=== PATIENT | female | born 1950 | race Caucasian/White ===

== ENCOUNTER 2024-11-30 23:37 | Observation (INO) | payer MEDICARE, SELFPAY ==
[2024-11-30 15:14] VITALS: BP 143/105
[2024-11-30 15:47] LABS: COVID-19 Antigen Positive (Negative)
[2024-11-30 15:49] LABS: % Basophils 0.5 % (0-2); % Eosinophils 0.5 % (0-6); % Immature Granulocytes 0.3 % (0-0.5); % Lymphocytes 7.9 % (20.5-51.1); % Monocytes 15.7 % (1.7-9.3); % Neutrophils 75.1 % (42.2-75.2); Absolute Lymphocytes 0.6 10^3/uL (1.2-3.4); Absolute Monocytes 1.3 10^3/uL (0.1-0.6); Hematocrit 39.1 % (37.0-47.0); Hemoglobin 12.8 g/dL (12.0-16.0); Mean Corp Hgb Conc. 32.7 g/dL (33.0-37.0); Mean Corpuscular Hgb 30.8 pg (27.0-31.0); Mean Platelet Volume 11.2 fL (7.4-10.4); Nucleated Red Blood Cells % 0 %; Platelet Count 195 10^3/uL (130-400); Red Blood Cell Count 4.16 10^6/uL (4.20-5.40); Red Cell Dist. Width 13.1 % (11.5-14.5)
[2024-11-30 16:05] LABS: ALT (SGPT) 22 U/L (0-35); AST (SGOT) 27 U/L (14-36); Albumin 4.1 g/dl (3.5-5.0); Alkaline Phosphatase 111 U/L (38-126); Blood Urea Nitrogen 22 mg/dl (7-17); Calcium 8.8 mg/dl (8.4-10.2); Carbon Dioxide 23 mmol/L (22-30); Chloride 98 mmol/L (98-107); Glucose 119 mg/dl (70-99); Potassium 4.1 mmol/L (3.5-5.1); Sodium 134 mmol/L (135-145); Total Bilirubin 0.7 mg/dl (0.2-1.3); Total Protein 6.2 g/dl (6.3-8.2); eGFR > 60.00
[2024-11-30 17:38] VITALS: BP 107/49
--- NOTE | 2024-11-30 19:38 | ED.GENMED ---
History of Present Illness
General
Chief Complaint: Headache
Source: patient and spouse
Exam Limitations: none
Time Seen by Provider: 11/30/24 19:11
Nursing documentation reviewed up to this point in time: agreed with
History of Present Illness
History of Present Illness:
74 yo female presents to the emergency complaining of cough, headache for the past 2 days. She took Tylenol which helped a little bit.
Past History
Past History
ED Past Medical History: Arrthythmia (Atrial fibrillation) and Other (Expressive aphasia)
ED Past Surgical History: Cardiac (Cardiac stents)
Social History
Tobacco: Non-smoker
Alcohol: None
Drug: None
Personal:
Review of Systems
Review of Systems
Allergies reviewed?: Yes
All Other Systems: Not applicable
Constitutional: Reports no symptoms
EENT: Reports no symptoms
Respiratory: Reports cough
Cardiac: Reports chest pain
ABD/GI: Reports no symptoms
: Reports no symptoms
Musculoskeletal: Reports no symptoms
Skin: Reports no symptoms
Neurological: Reports headache
Endocrine: Reports no symptoms
Hematologic/Lymphatic: Reports no symptoms
Psychiatric: Reports no symptoms
Phy Exam
Physical Exam
Physical Exam:
Physical Exam
General: no apparent distress, not acutely ill
Neck: supple. no meningeal signs. normal posterior pharynx
Heart: s1/s2 regular rate and rhythm, no murmur. equal radial
pulses.
HEENT: Pupils equal round reactive to light, EOMI
Lungs: no acute respiratory distress. clear bilaterally
Abdomen: normal bowel sounds. not tender. no CVAT
Neuro: alert and oriented. no focal neurological deficits cranial nerves II through XII intact, except expressive aphasia
Skin: no rash
Psychiatric: well kept. interactive and cooperative
Extremities: no edema. no calf tenderness. negative homans. good distal pulses
Course
Orders/Labs/Results
Orders:
Orders
11/30/24 15:[address] [CT Head W/o Iv Contrast] Urgent
Comment:
Reason For Exam: headache
11/30/24 15:37
COVID-19 Antigen Urgent
Source: Nasal Swab
Complete Blood Count/With Diff Urgent
Comprehensive Metabolic Panel Urgent
Influenza A+B Rapid Molecular Urgent
SAJAN Source: Nasal Swab
Specimen Description:
11/30/24 19:35
Electrocardiogram (*1) Urgent
Reason for Study: Chest Pain
EKG- Treatment ONCE
11/30/24 20:01
Troponin I Urgent
11/30/24 20:20
0.9% Sodium Chloride 1000 ml [Nss] 1,000 ml IV BOLUS
11/30/24 21:00
Acetaminophen [Tylenol] 650 mg PO NOW STA
11/30/24 21:01
CR Chest Portable - 1 View Urgent
Comment:
Reason For Exam: chest pain,, covid
Reason Study Needs to be Portable: Patient Unstable
11/30/24 22:21
Diltiazem HCl [Cardizem] 5 mg IV NOW STA
11/30/24 22:23
Diltiazem 125 mg/125 ml Nss [Cardizem] 125 mg in 125 ml IV NOW
Initial dose in mg/hr, then titrate:: 5
Titrate to keep:: Heart rate 80-100 bpm
Titrate by mg/hr:: 5 mg/hr
Frequency of titrations (minutes):: 15
Maximum dose in mg/hr:: 15
11/30/24 23:24
Admit/Transfer Patient As Directed
Co-Sign Provider:
Level of Care: Observation services
Assign to:: IMU- Intermediate Care
Physician / Group: Tana Glynn
Diagnosis: afib rvr, covid
11/30/24 23:26
Code Status As Directed
Resuscitation Status: Full Code
12/01/24 00:32
0.9% Sodium Chloride 1000 ml [Nss] 1,000 ml IV 100 mls/hr
Acetaminophen [Tylenol] 650 mg PO Q4HPRN PRN
Apixaban [Eliquis] 5 mg PO BID
12/01/24 00:32
CARDIOLOGY CONSULT Routine
Consulting Provider: Usama Dawson
Was physician already notified: No
Reason for consult: afib rvr
Consult Notification Routine
Specialty to Notify: Cardiology
Activity As Directed
Activity Level: Out of Bed-Early Mobility
Vital Signs As Directed
Frequency: Per unit guidelines
Weight As Directed
Frequency: Once
12/01/24 06:00
Echo 2D MMode Color/Doppler IN AM
Reason for Study: afib rvr
Complete Blood Count/No Diff IN AM
Comprehensive Metabolic Panel IN AM
Magnesium IN AM
TSH IN AM
12/01/24 08:00
Clopidogrel Bisulfate [Plavix] 75 mg PO DAILY
Ergocalciferol [Drisdol (Vitamin D2)] 50,000 units PO WE
Memantine HCl [Namenda] 5 mg PO DAILY
NIFEdipine EXTENDED RELEASE [Procardia Xl (Extended Release)] 30 mg PO DAILY
Valsartan [Diovan] 320 mg PO DAILY
biotin 10,000 mcg PO DAILY
12/01/24 Dinner
Cholesterol Lowering
Cholesterol Lowering: Sodium, 2 Gram
Abnormal Lab Results
11/30/24
15:37
RBC 4.16 L 10^6/uL
(4.20-5.40)
MCHC 32.7 L g/dL
(33.0-37.0)
MPV 11.2 H fL
(7.4-10.4)
Absolute Lymphs (auto) 0.6 L 10^3/uL
(1.2-3.4)
Absolute Monos (auto) 1.3 H 10^3/uL
(0.1-0.6)
Lymphocytes % 7.9 L %
(20.5-51.1)
Monocytes % 15.7 H %
(1.7-9.3)
Sodium 134 L mmol/L
(135-145)
BUN 22 H mg/dl
(7-17)
Glucose 119 H mg/dl
(70-99)
Total Protein 6.2 L g/dl
(6.3-8.2)
SARS-CoV-2 Antigen Positive A
(Negative)
11/30/24 15:37
11/30/24 15:37
Vital Signs
Initial and Last Documented VS:
Initial Vital Signs
Temp Pulse Resp BP Pulse Ox
98.9 F 67 18 143/105 97
11/30/24 15:14 11/30/24 15:14 11/30/24 15:14 11/30/24 15:14 11/30/24 15:14
Last Documented Vital Signs
Temp Pulse Resp BP Pulse Ox
98.1 F 66 17 118/53 96
12/01/24 00:45 12/01/24 00:30 12/01/24 00:15 12/01/24 00:00 12/01/24 01:28
MDM/Problems Addressed
Differential Diagnosis Includes:
Rapid atrial fibrillation, COVID
MDM/Problems Addressed:
74 yo female with covid, rapid afib. admit to hospitalist
Chronic conditions affecting care: Arrhythmia
Acute Exacerbation and/or Progression of Chronic Illness: Arrhythmia
*Radiology
Radiology exam reviewed: radiology read reviewed (CT head no acute findings)
*Pulse Oximetry
Patient hypoxic: no
*EKG
Interpreted by ED Provider?: Yes
EKG Intrepretation Date: 11/30/24
EKG Intrepretation Time: 19:50
Interpretation: abnormal
Comparison EKG: no comparison EKG present
Heart Rate: 112
Rate: tachycardiac
Rhythm: a-fib
[place]: left axis deviation
Interval: normal interval
QRS Pattern: normal QRS
Ischemia: no ischemia
*Combatant Diver Officer Interpretation
Rate: tachycardiac
Interpretation: abnormal
Heart Rate: 122
Rhythm: a-fib
*Critical Care Note
Total Time (30-74mins, 75-104mins- exclusive of procedures): 30
comment:
Critical care statement: A total of 30 minutes of critical care time was provided for this patient. This includes management of unstable vital signs, evaluation of the patient at bedside, reviewing the patient's pertinent medical records, discussion
with consultants, review of old EKGs and review of pertinent medical records. This time with separate from time utilized to perform the aforementioned documented procedures
Patient Management
Social determinants of health affecting care: Living situation
Discussion with other providers: Hospitalist
Escalation/DeEscalation of care consider admission/obs:
Admit indicated
ED Attending Note
-
Portions of this chart may have been created with voice recognition software.� Occasional wrong word or��sound alike� substitutions may have occurred due to the inherent limitations of voice recognition software.
Discharge Plan
Departure
Patient Disposition: Admit
Date of Disposition: 11/30/24
Time of Disposition: 22:24
Admit to: IMU
Presentation/result/management discussed w/ accepting MD/DO: Hospitalist
Patient with high blood pressure during this ER visit?: Yes
Covid-19: Confirmed COVID-19
Discharge Problem:
Atrial fibrillation with RVR, COVID-19, Aphasia
Interventions
Interventions:
*Risk Screen - Suicide Last Done: 12/01/24 00:45
*General Assessment Last Done: 11/30/24 15:14
*Neglect/Abuse Screening Last Done: 11/30/24 15:14
ED- Fall Risk Assessment Last Done: 12/01/24 00:39
*ED COVID-19 Vaccine History Last Done: 11/30/24 15:14
*Nursing Disposition Last Done: 12/01/24 00:39
ED- Neurological Assessment Last Done: 11/30/24 20:07
Discharge Date and Time
Discharge Date/Time: 12/01/24 00:39
[2024-11-30 20:22] VITALS: BP 117/96
[2024-11-30] MEDS: NSS 1000 IV (20:30)
[2024-11-30 20:45] LABS: Troponin I < 0.012 ng/ml
[2024-11-30 21:00] VITALS: BP 160/84
[2024-11-30] MEDS: TYLENOL 650 MG PO (21:21)
[2024-11-30] MEDS: CARDIZEM 5 MG IV (22:37)
[2024-11-30] MEDS: CARDIZEM 125 IV (22:38)
--- NOTE | 2024-11-30 22:45 | HPS.HSE ---
Family Physician
-
Family Physician: Nohemi De Leon
Chief Complaint
-
cough and headache
History of Present Illness
Patient is a 74-year-old female with past medical history significant for benign hypertension, hyperlipidemia, CAD, atrial fibrillation and expressive aphasia who presented to [facility] ED for evaluation of headache and cough for two days.
Patient reports having a really bad headache starting yesterday associated with a non-productive cough. Called primary care today to report severe headache and he recommended evaluation in ED. Patient denies any fever, chills, chest pain nausea,
vomiting, constipation, diarrhea or urinary symptoms. While in ED on monitor patient converted from NSR to afib RVR and was started on a Cardizem gtt.
Medical History
Past Medical History
Past Medical History: Reports Other
Additional Past Medical History:
atrial fibrillation
expressive aphasia
benign hypertension
hyperlipidemia
CAD
Past Surgical History: Reports Other
Additional Past Surgical History:
cardiac stent
cardiac ablation x2
Social History
Tobacco: Non-smoker
Alcohol: None
Drug: None
Personal:
Living: With Family
Family History
Family History: Not pertinent
Allergies / Home Medications
Allergies reflects when Allergies were last updated in [employer].
Home Medications with original date entered in [employer]
Allergy/Medication List:
Allergies
Allergy/AdvReac Type Severity Reaction Status Date / Time
ibuprofen [From Advil] Allergy Unknown Verified 11/30/24 15:18
Home Medications
apixaban 5 mg tablet 5 mg PO BID 11/30/24
biotin 10,000 mcg chewable tablet 10,000 mcg PO DAILY 11/30/24
clopidogrel 75 mg tablet 75 mg PO DAILY 11/30/24
ergocalciferol (vitamin D2) 1,250 mcg (50,000 unit) capsule (Vitamin D2) 1,250 mcg PO WE 11/30/24
evolocumab 140 mg/mL subcutaneous pen injector (Repatha SureClick) 140 mg SC Q2W 11/30/24
memantine 5 mg tablet 5 mg PO DAILY 11/30/24
nifedipine 30 mg tablet,extended release 24 hr 30 mg PO DAILY 11/30/24
valsartan 320 mg tablet 320 mg PO DAILY 11/30/24
Review of Systems
-
History Source: Patient and Family
Constitutional: Reports No Symptoms
EENT: Reports Other (severe headache )
Respiratory: Reports Cough
Cardiac: Reports No Symptoms
Abdomen/GI: Reports No Symptoms
: Reports No Symptoms
Musculoskeletal: Reports No Symptoms
Skin: Reports No Symptoms
Neurological: Reports No Symptoms
Endocrine: Reports No Symptoms
Hematologic/Lymphatic: Reports No Symptoms
Psych: Reports No Symptoms
Physical Exam
Vital Signs
Vital Signs
Temp Pulse Resp BP Pulse Ox
98.9 F 137 16 160/84 96
11/30/24 15:14 11/30/24 22:37 11/30/24 22:23 11/30/24 22:37 11/30/24 21:45
Physical Exam
General: Well Developed, Well Nourished, No Apparent Distress, Comfortable, Conversant and Obese
HEENT: NormoCephalic, Moist mucous membranes, Atraumatic, [place] Conjunctivae, Nose Appears Normal and Ears Appear Normal
Respiratory: Clear and Non Labored Respirations
Cardiac: S1/S2, Irregular Rhythm, Tachycardia and Peripheral Edema; No Murmur, Rub or Gallop
GI: Soft, Non Tender, Non Distended and Normal Bowel Sounds; No Organomegaly
Rectal: Deferred by Provider
Genito-urinary: Deferred by me
Musculoskeletal: No Clubbing, No Cyanosis and No Edema
Skin: Warm and IV/Catheter Site; No Rash
Neuro: Awake, Alert, AO x 3 and Nonfocal/grossly intact
Psych: Calm
Laboratory Results
-
11/30/24 15:37
11/30/24 15:37
Laboratory Results
Total Bilirubin 0.7 mg/dl (0.2-1.3) 11/30/24 15:37
AST 27 U/L (14-36) 11/30/24 15:37
ALT 22 U/L (0-35) 11/30/24 15:37
Alkaline Phosphatase 111 U/L (38-126) 11/30/24 15:37
Troponin I < 0.012 ng/ml 11/30/24 20:01
Data Reviewed
-
Diagnostic Radiology: Report Reviewed by me (CXR: No acute cardiopulmonary abnormality. Mild cardiomegaly.)
CT Scan: Report Reviewed by me (Head: No evidence of acute intracranial abnormality. Paranasal sinus disease as described, including small air-fluid levels in the posterior maxillary sinuses bilaterally. See above discussion.)
Medical Tests (Nuc Med, Echo, EKG etc): Report Reviewed by me (EKG: ATRIAL FIBRILLATION WITH RAPID VENTRICULAR RESPONSE LEFT AXIS DEVIATION MODERATE VOLTAGE CRITERIA FOR LVH, MAY BE NORMAL VARIANT ( R in aVL , Noel product ) MARKED ST
ABNORMALITY, POSSIBLE INFERIOR SUBENDOCARDIAL INJURY)
Lab Data: Labs Reviewed by me
Impression/Plan
-
IMPRESSION/PLAN:
#cough/headache
Covid: positive
Influenza: negative
Head CT: No evidence of acute intracranial abnormality.
Paranasal sinus disease as described, including small air-fluid levels in the posterior maxillary sinuses bilaterally. See above discussion.
CXR: No acute cardiopulmonary abnormality.
Mild cardiomegaly.
- admit to IMU
- IVF
- supportive care
#atrial fibrillation RVR
EKG: ATRIAL FIBRILLATION WITH RAPID VENTRICULAR RESPONSE
LEFT AXIS DEVIATION
MODERATE VOLTAGE CRITERIA FOR LVH, MAY BE NORMAL VARIANT ( R in aVL , Noel product )
MARKED ST ABNORMALITY, POSSIBLE INFERIOR SUBENDOCARDIAL INJURY
tachycardic to 140s
- Cardizem gtt
- consult cardiology
- ECHO in AM
#expressive aphasia
#benign hypertension
#hyperlipidemia
#CAD
Code status: full code
DVT prophylaxis: Eliquis
--- NOTE | 2024-11-30 23:20 | W.PN.UPDATE ---
Update Note
Progress Note Update
This is an addendum to the H&P written by Mckenzie Devine on 11/30/2024.� Patient seen and examined independently with HIGH SPEED OPERATOR.
74-year-old female past medical history of atrial fibrillation, CAD status post stents, hypertension, hyperlipidemia, diabetes, TIA, presenting with cough, headache for 2 days.
Patient arrives with heart rate up to 140s.� EKG showing atrial fibrillation with RVR.
Patient positive for COVID.
Chest x-ray shows no acute abnormality.� Mild cardiomegaly.
Patient with A-fib with RVR secondary to COVID infection.� He is not hypoxic.� IV fluids.� Cardizem drip.� Check echocardiogram.� Cardiology consulted.
[2024-12-01] VITALS (11 sets, daily range): BP systolic 97–155; BP diastolic 53–97; PULSE 68; BMI 29.6
[2024-12-01] MEDS: ELIQUIS 5 MG PO ×2 (01:02→09:14)
[2024-12-01] MEDS: NSS 1000 IV (01:02)
--- NOTE | 2024-12-01 01:51 | PTCARENOTE ---
received patient via stretcher from ED. Patient walked from stretcher to bed. Patient Aox3 with expressive aphasia and is forgetful. NSR on monitor. 96% on room air. No complaints of pain at this time. Normal saline running at 100. Assessment and
vital signs as documented. call sheriff in reach.
[2024-12-01 04:45] LABS: Hematocrit 38.2 % (37.0-47.0); Hemoglobin 12.6 g/dL (12.0-16.0); Mean Corpuscular Volume 93.9 fL (81.0-99.0); Mean Platelet Volume 11.4 fL (7.4-10.4); Platelet Count 207 10^3/uL (130-400); Red Blood Cell Count 4.07 10^6/uL (4.20-5.40); White Blood Cell Count 5.9 10^3/uL (4.8-10.8)
[2024-12-01 05:10] LABS: ALT (SGPT) 20 U/L (0-35); AST (SGOT) 28 U/L (14-36); Albumin 3.4 g/dl (3.5-5.0); Alkaline Phosphatase 107 U/L (38-126); Blood Urea Nitrogen 19 mg/dl (7-17); Calcium 8.7 mg/dl (8.4-10.2); Carbon Dioxide 21 mmol/L (22-30); Chloride 110 mmol/L (98-107); Estimated Creatinine Clearance 75 ml/min; Glucose 98 mg/dl (70-99); Magnesium 2.5 mg/dl (1.6-2.3); Potassium 4.1 mmol/L (3.5-5.1); Sodium 140 mmol/L (135-145); Total Bilirubin 0.4 mg/dl (0.2-1.3); Total Protein 5.7 g/dl (6.3-8.2); eGFR > 60.00
[2024-12-01 05:43] LABS: TSH 0.18 uIU/ml (0.47-4.68)
--- NOTE | 2024-12-01 07:29 | CON.CAR ---
Addendum entered and electronically signed by Isaac Gibson MD 12/01/24 10:17:
I saw and examined the patient.
The Swatch Folder's note was reviewed and I agree with the note.
Comment: Briefly, 74-year-old woman past medical history of atrial fibrillation on Eliquis presenting with cough and headache found to be COVID-positive. During her hospitalization was in rapid atrial fibrillation, but has spontaneously converted
and is maintaining sinus rhythm at the time of my evaluation.
Agree with starting low-dose oral Cardizem for rate control
Continue home Eliquis for cardioembolic prophylaxis
History is somewhat limited by the patient's expressive aphasia. Awaiting prior records which have been requested.
If no recent echo performed we can arrange for outpatient echo after no longer infectious from COVID
Original Note:
Consultation
Consultation Request
Date/Time Consultation Requested: 12/01/24 at 0032
Date/Time Consultation Performed: 12/01/24 at 0734
Requesting Provider: Dr. Reeder
Performing Provider: Dr. Gibson
Reason for Consultation: Afib with RVR
Medical History
-
History of Present Illness:
Patient came to [facility] last night with KUMAR and cough and was tested positive for COVID, cardiology is now consulted for rapid Afib. Patient with expressive aphasia and she has trouble answering questions. I called patient's and he did not
answer and his voicemail box was full so I could not leave a message. I then tried called her PCP and their office is closed. Talked with nursing and reportedly there is a known h/o CVA and expressive aphasia. Patient says that she has a h/o PR and
PCI and also a h/o Afib, but no details. Chronically on Eliquis and Plavix. Patient started with with URI symptoms including nonproductive cough for 2 to 3 days prior to admission. She then started with a headache yesterday and called her PCP for
advice and was advised to go to the ER. In the ER patient had CT head that showed no acute change. Patient was initially in SR and then converted to A-fib with RVR, but no reported symptoms. Patient was started on a Cardizem gtt and spontaneously
converted to SR within hours. Patient remains in SR now. Patient complains of ongoing cough, but denies CP, SOB, orthopnea or CASTILLO.
PMH:
Paroxysmal Afib
Chronic Eliquis OAC
Possible h/o PR and PCI on chronic Plavix therapy, details unknown
HTN
Hyperlipidemia
Expressive aphasia of unknown chronicity
Past Medical History
Past Medical History: Other (in HPI)
Past Surgical History: Cardiac (PCI)
Social History
Tobacco: Non-Smoker
Alcohol: None
Drug: None
Personal:
Living: With Family
Family History
Family History: Unable to Obtain (patient is a poor historian and her is not answering the phone)
Allergies / Home Medications
Allergy/AdvReac Type Severity Reaction Status Date / Time
ibuprofen [From Advil] Allergy Unknown Verified 11/30/24 15:18
�Medication �Instructions �Recorded �Confirmed �Type
apixaban 5 mg tablet 5 mg PO BID 11/30/24 11/30/24 History
biotin 10,000 mcg chewable tablet 10,000 mcg PO DAILY 11/30/24 11/30/24 History
clopidogrel 75 mg tablet 75 mg PO DAILY 11/30/24 11/30/24 History
ergocalciferol (vitamin D2) 1,250 1,250 mcg PO WE 11/30/24 11/30/24 History
mcg (50,000 unit) capsule (Vitamin
D2)
evolocumab 140 mg/mL subcutaneous 140 mg SC Q2W 11/30/24 11/30/24 History
pen injector (Repatha Randyick)
memantine 5 mg tablet 5 mg PO DAILY 11/30/24 11/30/24 History
nifedipine 30 mg tablet,extended 30 mg PO DAILY 11/30/24 11/30/24 History
release 24 hr
valsartan 320 mg tablet 320 mg PO DAILY 11/30/24 11/30/24 History
Review of Systems
-
History Source: Patient
All other systems: Negative unless noted
Physical Exam
Vital Signs
Temp Pulse Resp BP Pulse Ox
98.1 F 67 12 150/69 92
12/01/24 00:45 12/01/24 06:00 12/01/24 06:00 12/01/24 06:00 12/01/24 06:00
GEN: NAD. AAO to person, place and situation
HEENT: EOMI, MMM
LUNGS: RA. Dry cough. CTA B/L, no wheeze
CV: SR on tele. Reg, S1/S2, 2/6 syst LSB
ABD: soft, BS+, NT, ND
EXT: Trace B/L LE edema
NEURO: Gross non-focal
SKIN: Warm, dry and pink. No rash
Lab Results
12/01/24 04:32
12/01/24 04:32
Troponin I < 0.012 ng/ml 11/30/24 20:01
Impression / Plan
-
PCP: Dr. Nohemi De Leon
Cardiology: unknown emergency preparedness manager at [facility]
Impression:
Admitted with rapid Afib, KUMAR and COVID 11/30/24
COVID positive 11/30/24
Afib with RVR
SR in the ER then rapid Afib then spontaneously converted to SR on Cardizem gtt overnight
Paroxysmal Afib
Chronic Eliquis OAC
Possible h/o PR and PCI on chronic Plavix therapy, details unknown
Murmur of
HTN
Hyperlipidemia
Expressive aphasia of unknown chronicity
Plan:
-Patient came to [facility] last night with KUMAR and cough and was tested positive for COVID, cardiology is now consulted for rapid Afib. Patient with expressive aphasia and she has trouble answering questions. I called patient's and he did not
answer and his voicemail box was full so I could not leave a message. I then tried called her PCP and their office is closed. Talked with nursing and reportedly there is a known h/o CVA and expressive aphasia. Patient says that she has a h/o PR and
PCI and also a h/o Afib, but no details. Chronically on Eliquis and Plavix. Patient started with with URI symptoms including nonproductive cough for 2 to 3 days prior to admission. She then started with a headache yesterday and called her PCP for
advice and was advised to go to the ER. In the ER patient had CT head that showed no acute change. Patient was initially in SR and then converted to A-fib with RVR, but no reported symptoms. Patient was started on a Cardizem gtt and spontaneously
converted to SR within hours. Patient remains in SR now. Patient complains of ongoing cough, but denies CP, SOB, orthopnea or CASTILLO.
-Initial ECG reviewed by me shows Afib with RVR and no acute ischemic changes. ECG 4 hours later is SR without ischemic changes.
-Expressive aphasia of unknown chronicity makes HPI difficult. Called this morning and no answer and cannot leave a message because his voicemail box is full. Called PCP and they are closed.
-Most likely patient with a h/o paroxysmal Afib based on what she can manage to tell me and the fact that she is chronically on Eliquis. Afib with RVR and now back in SR after Cardizem gtt last night. Will add Cardizem CD 120 mg daily, but will need
to continue to follow on tele due to sinus bradycardia with HRs in the 30s after conversion last night. Patient was not taking any AV linda blockers prior to admission.
-Cont Eliquis [address] head without acute change. KUMAR improved.
-Troponin normal, no concerns for ACS.
-Trace B/L LE edema, but no rales and supine in bed without SOB or hypoxia.
-Murmur of , will continue attempts at obtaining records from PCP, they might open at 9 AM.
[2024-12-01] MEDS: DIOVAN 320 MG PO (09:14)
[2024-12-01] MEDS: PLAVIX 75 MG PO (09:14)
[2024-12-01] MEDS: NAMENDA 5 MG PO (09:14)
[2024-12-01] MEDS: PROCARDIA XL (EXTENDED RELEASE) 30 MG PO (09:14)
--- NOTE | 2024-12-01 10:42 | W.PN.UPDATE ---
Addendum entered and electronically signed by Patria Mark PA-C 12/01/24 12:16:
I requested records from her PCP and computer discovery teacher and they have now arrived by fax and I am reviewing them below:
CAD
status post GENEVIEVE to distal RCA 07/18/2008
Status post GENEVIEVE to circumflex 10/25/2008
Status post GENEVIEVE to OM1 04/11/2009
Patent vessels by cardiac cath 07/2009
History of DVT
Heterozygous prothrombin mutation with intolerance to multiple anticoagulants
Imaging Aide Dr. Layton feels that patient is at 2-3 fold increased risk of venous thrombosis, but unclear if this also increases risk of embolic disease with A-fib
Chronic Eliquis OAC
Previously intolerant to warfarin
Previously intolerant to Xarelto
History of DVT/2021
Hyperlipidemia with statin intolerance
Cognitive changes
Primary computer discovery teacher at [place] noted concerns about worsening cognition 01/23/2023 in the setting of patient calling their office repeatedly with the same question and not following through on follow-up
Paroxysmal A-fib
Status post PVI 07/30/2013
possible 2nd ablation 2022
Previous dronedarone therapy stopped secondary to GI intolerance
Previous Tikosyn therapy stopped for unknown reasons 10/2013
History of pericarditis treated at [address] [place] [address] 06/05/2023
DM 2
Echo 11/27/2016: EF 55 to 60%, aortic sclerosis without stenosis
Lexiscan nuclear stress test 12/13/2016: Slight inferior wall defect overlapping GI and attenuation artifact, otherwise negative perfusion imaging without significant ischemia or scar, EF 69%
Cardiac cath 07/2019: Previously placed circumflex and RCA stents are patent, OM stent patent
Patient was taking Toprol-XL and Cardizem CD as of 2021. EP is Dr. Sony De Guzman at [place]. When she last saw Dr. De Guzman on 11/15/2022 she noted increasing episodes of palpitations and so they made a plan to proceed with another ablation, but I have
no records beyond this date
Primary computer discovery teacher is Dr. Janine Gamble at [place]
Original Note:
Update Note
Progress Note Update
Called and talked to her PCP, Dr. Nohemi De Leon, for 9:[address] De Guzman for EP at [place] and Dr. Cisneros for routine cardiology care at [place]. Patient was also seeing Dr. Butt for Neurology at [facility] and had side effects with
Namenda so it was stopped. She has a h/o cognitive dysfunction and recent office based MMSE have been declining so patient was going to see Neurology at [facility] this week for a second opinion, but is now admitted.
[2024-12-01] MEDS: DRISDOL (VITAMIN D2) 50000 UNITS PO (11:49)
--- NOTE | 2024-12-01 11:59 | W.PN.HOSP.TC ---
Today's Communication/Plan
-
dc home later today
Assessment / Plan
Assessment / Plan
Assessment:
COVID-19 infection
- no hypoxia, CXR clear
- no indication for specific treatments
- supportive care
Parox A. fib with RVR
- not converted to NSR
- family hesitant to start Cardizem orally; did require IV Cardizem in hospital
- continue Eliquis
- pt can f/u with Dr. Sony DONATO
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
Murmur of
Essential HTN
- continue CCB/ARB
Hyperlipidemia - OP Repatha
Expressive aphasia of unknown chronicity
- CT head no acute complaints
DVT ppx: Eliquis
Code: Full
More than 30 minutes spent in discharge including
Final examination of the patient
Summarizing hospital stay
Instructions for continuing care to all relevant caregivers
Preparation of discharge records, prescriptions, and referral forms
Total time spent (in minutes):41
Anticipated Discharge: Today
Subjective/Interval History
-
Date of Service: December 01, 2024
Admitted with COVID and Afib
denies any new complaints at present; no hypoxia
Objective Data
-
Labs:
Laboratory Results
12/01/24
04:32
WBC 5.9
Hgb 12.6
Hct 38.2
Plt Count 207
Sodium 140
Potassium 4.1
Chloride 110 H
Carbon Dioxide 21 L
BUN 19 H
Creatinine 0.7
Glucose 98
Calcium 8.7
Total Bilirubin 0.4
AST 28
ALT 20
Alkaline Phosphatase 107
Vital Signs:
Vital Signs
Temp Pulse Resp BP Pulse Ox
98.1 F 56 17 145/83 97
12/01/24 11:20 12/01/24 09:17 12/01/24 09:17 12/01/24 09:17 12/01/24 09:17
Physical Exam
-
General: No Apparent Distress
HEENT: Normocephalic and Atraumatic
Respiratory: Negative Wheezes
Cardiac: Regular Rhythm and S1/S2
GI: Soft and Nontender
Musculoskeletal: No Edema
Neuro: AO x 3
Psych: Calm
Data Reviewed
-
Total Time Spent with Patient (in minutes): 41
Labs: Labs Reviewed by me
--- NOTE | 2024-12-01 12:13 | W.DS.TRANS ---
DC Summary - Pot Room Tapper
-
Discharge Instructions:
Discharge Diagnosis/Procedures acute COVID-19 infection, Rapid Afib resolved to
NSR with IV Cardizem
Diet Low Cholesterol
Activity As tolerated
Bathing Restrictions None
Instructions:
Stand-Alone Forms:
Changes to Home Medications: No
Discharge Medications:
DC Medications w/original date entered in [employer]
apixaban 5 mg tablet 5 mg PO BID Blood Clot Prevention/Tx 11/30/24
biotin 10,000 mcg chewable tablet 10,000 mcg PO DAILY Supplement 11/30/24
clopidogrel 75 mg tablet 75 mg PO DAILY Blood Clot Prevention/Tx 11/30/24
ergocalciferol (vitamin D2) 1,250 mcg (50,000 unit) capsule (Vitamin D2) 1,250 mcg PO WE Supplement 11/30/24
evolocumab 140 mg/mL subcutaneous pen injector (Repatha [employer]Quincyick) 140 mg SC Q2W Antilipemic Agent, PCSK9 11/30/24
memantine 5 mg tablet 5 mg PO DAILY Mental Health/Anxiety 11/30/24
nifedipine 30 mg tablet,extended release 24 hr 30 mg PO DAILY Heart Disease/Condition 11/30/24
valsartan 320 mg tablet 320 mg PO DAILY Blood Pressure 11/30/24
Home Medication Changes
Pending Results: No
Total time spent discharging patient (in min): 41
--- NOTE | 2024-12-01 12:27 | PTOTSP ---
BRAIDER SETTER Evaluation
No signs of oral/pharyngeal dysphagia or aspiration.
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 Patient reporting acute exacerbation of her aphasia with COVID illness. Patient was seeking BRAIDER SETTER services prior to this illness. Outpatient information provided.
Recommend:
1. Regular, Thin
2. Medications as best tolerated
3. Outpatient language evaluation
[2024-12-01] MEDS: NSS IV (12:34)
--- NOTE | 2024-12-01 13:06 | PTOTSP ---
The patient ambulated several laps in the room supervision level and declined the need to do stairs at home. No concerns regarding mobility upon return home. No PT needs identified at this time, will sign off.
--- NOTE | 2024-12-01 16:54 | CM ---
Patient with Hx expressive aphasia who is COVID +. Room air. PT/OT; no needs.
Spoke with patient who resides with her in a 2 story house with first floor bedroom.
The patient was independent in ADLs and ambulation using her SPC.
DME - SPC, pickup walker
No prior VN or SNF.
PCP - Nohemi De Leon
Pharmacy - [facility]
SCHREIBER Letter completed.
The patient says she feels ready for d/c home today. Her will provide a ride home.
No CM d/c needs identified.
Plan home today.
== END 2024-12-01 15:46 | disposition home or self-care (01) ==
LOC: IMU 23:37
PROVIDERS: Nurse Practitioner Family; Student in an Organized Health Care Education/Training Program; ADMITTING PHYSICIAN Hospitalist; ATTENDING PHYSICIAN Internal Medicine; EMERGENCY PHYSICIAN Emergency Medicine; FAMILY PHYSICIAN Family Medicine; OTHER PHYSICIAN Internal Medicine Cardiovascular Disease
DX: U07.1 COVID-19 (principal); R51.9 Headache, unspecified; R07.9 Chest pain, unspecified; Z79.01 Long term (current) use of anticoagulants; I48.0 Paroxysmal atrial fibrillation; I35.0 Nonrheumatic aortic (valve) stenosis; I69.320 Aphasia following cerebral infarction; I10 Essential (primary) hypertension; E78.5 Hyperlipidemia, unspecified; I25.10 Atherosclerotic heart disease of native coronary artery without angina pectoris; Z79.02 Long term (current) use of antithrombotics/antiplatelets; Z79.899 Other long term (current) drug therapy
CPT/HCPCS: 70450; 71045; 80053; 83735; 84443; 84484; 85025; 85027; 87502; 87811; 92523; 92610; 93005; 96361; 96374; 96376; 97162; 97166; 99291; G0378